=== PATIENT | female | born 1995 | race Caucasian/White ===

== ENCOUNTER 2023-01-20 10:19 | Emergency (ER) | payer BC ==
[~2023-01-20] VITALS: Ht 165.1 cm; Wt 75.7 kg
--- NOTE | 2023-01-20 10:19 | NUR ---
BROUGHT BACK TO BED #8 AND TRIAGED. REPORT GIVEN TO JULAI
[2023-01-20 10:20] VITALS: BP_SYST 140
--- NOTE | 2023-01-20 10:33 | NUR ---
Patient BIB father from work. Chief Complaint: Pain at right axillary radiating to shoulder all the way to RLQ. Patient states pain started x1w ago, however has intensified since Wednesday. N/V x 2d with CAROLINE that stopped the Vomiting. Patient reports weight loss of 15lbs in 2w. Bilateral LE swelling reported, states has improved today none noted upon visual assessment now. Reports scant BM with regular consistency yesterday. Patient reports s/s are a repeat occurence since November. Patient does not tolerate ibuprofen, it is a gastric irritant for her. Patient's HCG is negative. Patient reports taking BC. Patient reports pain at 6/10 now. Patient a&ox4 and stable. Father at beside, VS monitor on. Bedrails up. Patient is not a fall risk.
--- NOTE | 2023-01-20 10:48 | NUR ---
ER at bedside examining patient.
--- NOTE | 2023-01-20 10:48 | NUR ---
HCG negative, Urine taken to lab.
--- NOTE | 2023-01-20 10:54 | NUR ---
Patient states LMP approximately 12/25/22
[2023-01-20] MEDS ORDERED: ONDANSETRON 4 MG ODT TAB PO ONE (11:00)
[2023-01-20] MEDS ORDERED: KETOROLAC TROMETHAMINE 60 MG/2 ML VIAL IM ONE (11:00)
[2023-01-20] MEDS ORDERED: OMEP40CA20 PO (11:03)
[2023-01-20] MEDS ORDERED: ONDA8TAB60 PO (11:03)
--- NOTE | 2023-01-20 11:18 | NUR ---
Patient given written and verbal discharge instructions and verbalizes understanding. ER MD Mark discussed with patient the results and treatment provided. Patient in stable condition. ID arm band removed. Rx of Omeprazole and Zofran sent to pharmacy of choice. Patient educated on pain management and to follow up with PMD. Pain Scale to be assessed in 10m prior to patient leaving. Opportunity for questions provided and answered. Medication side effect fact sheet provided. Work note provided. Patient stable.
== END 2023-01-20 11:18 | disposition home or self-care (01) ==
LOC: SED 10:19
DX: R10.13 Epigastric pain (principal); R11.2 Nausea with vomiting, unspecified; R42 Dizziness and giddiness; Z79.899 Other long term (current) drug therapy
CPT/HCPCS: 99283; 96372; Q0162; J1885